=== PATIENT | female | born 1995 | race Caucasian/White ===

== ENCOUNTER 2025-04-19 08:49 | Emergency (ER) | payer OTHER ==
[~2025-04-19] VITALS: Ht 165.1 cm; Wt 60.7 kg
[2025-04-19 09:13] VITALS: O2SAT 98
[2025-04-19] MEDS ORDERED: DIPH25CA83 MT (10:09)
[2025-04-19] MEDS ORDERED: P50 MT (10:09)
[2025-04-19] MEDS ORDERED: FAMO-135 MT (10:09)
[2025-04-19] MEDS ORDERED: FLUORESCEIN SODIUM 1MG/STRIP BOTHEYE ONE (10:15)
[2025-04-19] MEDS ORDERED: TETRACAINE 0.5% OPHTH DROPS 4ML BOTHEYE ONE (10:15)
[2025-04-19] MEDS: PREDNISONE 20MG TABLET PO ONE (10:28)
[2025-04-19] MEDS: DIPHENHYDRAMINE 25MG CAPSULE PO ONE (11:04)
[2025-04-19 11:05] VITALS: BP 117/75; PULSE 62; RESP 18; TEMP 36.8; O2SAT 87
== END 2025-04-19 11:07 | disposition home or self-care (01) ==
LOC: ER 08:49
DX: L50.9 Urticaria, unspecified (principal); Z79.899 Other long term (current) drug therapy
CPT/HCPCS: 99283; 81025; Q0163; J7512